=== PATIENT | female | born 1960 | race Caucasian/White ===

== ENCOUNTER 2024-02-09 07:06 | Outpatient (OUT) | payer MEDICARE, SELFPAY | END 2024-02-09 07:07 | disposition home or self-care (01) | LOC: LAB 07:10 | PROVIDERS: PCP Internal Medicine | DX: Z79.4 Long term (current) use of insulin (principal); E11.3299 Type 2 diabetes mellitus with mild nonproliferative diabetic retinopathy without macular edema, unspecified eye | CPT/HCPCS: 36415; 80299; 82533 ==